=== PATIENT | male | born 1980 | race Caucasian/White ===

== ENCOUNTER 2016-07-25 01:40 | Emergency (ER) | payer OTHER ==
[~2016-07-25] VITALS: Ht 190.5 cm; Wt 148.4 kg
[~2016-07-25 01:40] MED LIST: ALPR1TAB3 PO; BUPR300T PO; ESCI20TA PO; MULT1TAB84 PO
[2016-07-25 01:49] VITALS: BP 137/94; PULSE 73; RESP 18; TEMP 97.9; O2SAT 96
--- NOTE | 2016-07-25 02:50 | PD ---
HPI Chief Complaint: Head Injury Time Seen by Provider: 02:00 Travel History International Travel<30 days: No Contact w/Intl Traveler<30days: No Traveled to known affect area: No History of Present Illness HPI 36 year-old male presents to the emergency department by private transportation for evaluation of head injury and neck pain that occurred approximately 8:45 PM while playing football in [facility]. Patient reportedly did have loss of consciousness with the event. 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 Patient reports that for this particular came his equipment was ill fitting and the helmet did not fit properly so he removed the padding in order to play and during the game he was injured clotting with another player. Patient does not recall all events but reportedly was carried off of the football field. Football employment trainer/brush sander/sports medicine provider did not assess the patient states his is a nurse and she assessed him and decided that he needed to come to the emergency room. Patient insisted on returning to the area locally noted to be assessed his pupil with him and he did not want him to be inconvenienced by having him assessed in the emergency room in [facility]. Patient denies any upper extremity or lower extremity numbness tingling or weakness. No ataxia of gait. PFSH Past Medical History Narrative Medical Anxiety depression sinus surgery no tobacco use nursing notes reviewed Anxiety: Yes Depression: Yes Diminished Hearing: No Tetanus Vaccination: Unknown Influenza Vaccination: No Past Surgical History Other Surgery: Yes (MULTIPLE SINUS SURGERY) Social History Alcohol Use: No Tobacco Use: No Substance Use: No Allergies-Medications (Allergen,Severity, Reaction): Coded Allergies: No Known Allergies (Unverified , 07/25/16) Reported Meds & Prescriptions Reported Meds & Active Scripts Active Reported Multivitamin Adults (Multiple Vitamins W/ Minerals) 1 Tab 1 Tab PO DAILY Bupropion HCl ER 24 HR (Bupropion HCl) 300 Mg Tab 300 Mg PO DAILY Escitalopram (Escitalopram Oxalate) 20 Mg Tab 20 Mg PO DAILY Alprazolam 1 Mg Tab 1 Mg PO TID PRN Review of Systems Except as stated in HPI: all other systems reviewed are Neg Physical Exam Narrative GENERAL: Well-developed well-nourished male in no acute distress no respiratory distress GCS 15 SKIN: Warm and dry. HEAD: Atraumatic. Normocephalic. No scalp soft tissue swelling hematoma ecchymosis or abrasion no laceration or bony step-off. EYES: Pupils equal and round. No scleral icterus. No injection or drainage. ENT: No nasal bleeding or discharge. Mucous membranes pink and moist. NECK: Trachea midline. No JVD. Cervical collar applied CARDIOVASCULAR: Regular rate and rhythm. RESPIRATORY: No accessory muscle use. Clear to auscultation. Breath sounds equal bilaterally. GASTROINTESTINAL: Abdomen soft, non-tender, nondistended. Hepatic and splenic margins not palpable. MUSCULOSKELETAL: Extremities without clubbing, cyanosis, or edema. No obvious deformities. NEUROLOGICAL: Awake and alert. No obvious cranial nerve deficits. Motor grossly within normal limits. Five out of 5 muscle strength in the arms and legs. Normal speech. PSYCHIATRIC: Appropriate mood and affect; insight and judgment normal. Data Data Last Documented VS Vital Signs Date Time Temp Pulse Resp B/P Pulse Ox O2 Delivery O2 Flow Rate FiO2 07/25/16 02:05 20 98 07/25/16 01:49 97.9 73 137/[address] Brain W/O Iv Contrast(Rout) (07/25/16 ) Ct Cerv Spine W/O Contrast (07/25/16 ) MDM Medical Decision Making Medical Screen Exam Complete: Yes Emergency Medical Condition: Yes Medical Record Reviewed: Yes Interpretation(s) CTbrain w/o: CONCLUSION: Normal examination. Stefan Marshall MD on July 25, 2016 at 2:51 Board Certified Radiologist. This report was verified electronically. CT cerv spine w/o: CONCLUSION: 1. Mild degenerative changes with no fracture or listhesis. Stefan Marshall MD on July 25, 2016 at 2:58 Board Certified Radiologist. This report was verified electronically. Differential Diagnosis Minor CHI, concussion, ICH, cervical spine sprain strain fracture cord injury Narrative Course Patient was calm place imaging studies ordered Diagnosis Primary Impression: Concussion Qualified Code: S06.0X1A - Concussion, with loss of consciousness of 30 minutes or less, initial encounter Additional Impressions: Minor closed head injury Cervical strain, acute Qualified Code: S16.1XXA - Cervical strain, acute, initial encounter Referrals: Primary Care Physician 1 day Patient Instructions: General Instructions Additional Instructions: Follow head injury precautions 24 hours No contact sports until evaluated by primary care provider or sports medicine provider No work times one day May use as tolerated acetaminophen and/or ibuprofen per package directions for minor pain or pain associated with inflammation respectively Use ice intermittently for first 12-24 hours to areas of soft tissue swelling and discomfort then moist heat for comfort purposes Return to the emergency department for any concerns or change in condition May use Phenergan as prescribed as needed as tolerated for nausea and/or vomiting May use muscle relaxant as prescribed as needed for muscle spasm of the neck use with caution as may impair judgment delay reaction time or cause drowsiness Med/Other Pt SpecificInfo: Prescription(s) given Scripts Methocarbamol (Robaxin)750 Mg [id number] Mg PO Q6HR #10 TAB Ref 0 Prov:Daniela Kinsey MD 07/25/16 Promethazine (Phenergan)25 Mg Tab25 Mg PO Q6H PRN (Nausea/Vomiting) #10 TAB Ref 0 Prov:Daniela Kinsey MD 07/25/16 Daniela Kinsey MD Jul 25, 2016 02:50
--- NOTE | 2016-07-25 02:53 | RADHPO ---
EXAM DATE/TIME: 07/25/2016 02:25 [facility] COMPARISON: No previous studies available for comparison. INDICATIONS : Left superior head trauma. RADIATION DOSE: 61.4 CTDIvol (mGy) MEDICAL HISTORY : None SURGICAL HISTORY : None. ENCOUNTER: Initial ACUITY: 1 day PAIN SCALE: 8/10 LOCATION: cranial TECHNIQUE: Multiple contiguous axial images were obtained of the head. Using automated exposure control and adj ustment of the mA and/or kV according to patient size, radiation dose was kept as low as reasonably a chievable to obtain optimal diagnostic quality images. FINDINGS: CEREBRUM: The ventricles are normal for age. No evidence of midline shift, mass lesion, hemorrhage or acute in farction. No extra-axial fluid collections are seen. POSTERIOR FOSSA: The cerebellum and brainstem are intact. The 4th ventricle is midline. The cerebellopontine angle i s unremarkable. EXTRACRANIAL: The visualized portion of the orbits is intact. SKULL: The calvaria is intact. No evidence of skull fracture. CONCLUSION: Normal examination. Stefan Marshall MD on July 25, 2016 at 2:51 Board Certified Radiologist. This report was verified electronically.
--- NOTE | 2016-07-25 03:01 | RADHPO ---
EXAM DATE/TIME: 07/25/2016 02:25 [facility] COMPARISON: CT BRAIN W/O CONTRAST, July 25, 2016, 2:25. INDICATIONS : Posterior neck trauma. RADIATION DOSE: 26.76 CTDIvol (mGy) MEDICAL HISTORY : None SURGICAL HISTORY : None. ENCOUNTER: Initial ACUITY: 1 day PAIN SCALE: 8/10 LOCATION: neck TECHNIQUE: Volumetric scanning of the cervical spine was performed. Multiplanar reconstructions in the sagittal, coronal and oblique axial planes were performed. Using automated exposure control and adjustment o f the mA and/or kV according to patient size, radiation dose was kept as low as reasonably achievable to obtain optimal diagnostic quality images. FINDINGS: VERTEBRAE: Normal vertebral body height. Mild anterior osteophyte formation at C4 and C5. ALIGNMENT: No evidence of subluxation. C2-C3: The bony spinal canal is normal in size. No evidence of disc bulge or herniation. The neural forami na are bilaterally patent. C3-C4: Tiny central disc protrusion. C4-C5: Tiny central disc protrusion. C5-C6: Tiny central disc protrusion. C6-C7: The bony spinal canal is normal in size. No evidence of disc bulge or herniation. The neural forami na are bilaterally patent. C7-T1: The bony spinal canal is normal in size. No evidence of disc bulge or herniation. The neural forami na are bilaterally patent. CONCLUSION: 1. Mild degenerative changes with no fracture or listhesis. Stefan Marshall MD on July 25, 2016 at 2:58 Board Certified Radiologist. This report was verified electronically.
[2016-07-25] MEDS ORDERED: PROM25TA5 PO (03:12)
[2016-07-25] MEDS ORDERED: ROBA750T PO (03:12)
[2016-07-25 03:46] VITALS: BP 130/71
[2016-08-16] MEDS ORDERED: WELLTAB39 PO (13:04)
[2016-08-16] MEDS ORDERED: MOBI15TA PO (13:04)
== END 2016-07-25 03:48 | disposition home or self-care (01) ==
LOC: PHED 01:40 → PHEFT 03:48
DX: S06.0X1A Concussion with loss of consciousness of 30 minutes or less, initial encounter (principal); S16.1XXA Strain of muscle, fascia and tendon at neck level, initial encounter; W51.XXXA Accidental striking against or bumped into by another person, initial encounter; Y93.61 Activity, american tackle football
CPT/HCPCS: 70450; 72125

== ENCOUNTER 2016-08-21 13:48 | Emergency (ER) | payer OTHER ==
[~2016-08-21] VITALS: Ht 190.5 cm; Wt 157.0 kg
[~2016-08-21 13:48] MED LIST changes: -BUPR300T PO; -ESCI20TA PO; +MOBI15TA PO; -MULT1TAB84 PO; +WELLTAB39 PO
[2016-08-21 13:54] VITALS: BP 166/98; PULSE 82; RESP 16; TEMP 97.9; O2SAT 97
[2016-08-21] MEDS ORDERED: IBUP800T23 PO ×2 (14:04→15:19)
[2016-08-21] MEDS ORDERED: MOBI15TA PO (14:04)
--- NOTE | 2016-08-21 14:05 | PD ---
HPI Chief Complaint: Injury Time Seen by Provider: 14:05 Travel History International Travel<30 days: No Contact w/Intl Traveler<30days: No Traveled to known affect area: No History of Present Illness HPI 28-year-old male stating right forearm pain, swelling, as well as right hand pain and swelling, status post football injury approximately one week ago. Patient was seen on 08/18/16, at the [facility] urgent care and stated that he was told there was no fracture. Patient states had pain and swelling in inability to make a fist of the right hand. Patient has a couple of abrasions without significant signs of infection. Nice fever, chills, or other symptoms. He has no known drug allergies. PFSH Past Medical History Anxiety: Yes Depression: Yes Diminished Hearing: No Influenza Vaccination: No ?: Not Past Surgical History Other Surgery: Yes (MULTIPLE SINUS SURGERY) Social History Alcohol Use: No Tobacco Use: No Substance Use: No Allergies-Medications (Allergen,Severity, Reaction): Coded Allergies: No Known Allergies (Unverified , 08/21/16) Reported Meds & Prescriptions Reported Meds & Active Scripts Active Reported Mobic (Meloxicam) 15 Mg Tab 15 Mg PO DAILY Ibuprofen 800 Mg Tab 800 Mg PO Q6HR PRN Wellbutrin Xl 24 HR (Bupropion HCl) 300 Mg Tab 300 Mg PO DAILY Review of Systems Except as stated in HPI: all other systems reviewed are Neg General / Constitutional: No: Fever Eyes: No: Visual changes HENT: No: Headaches Cardiovascular: No: Chest Pain or Discomfort Respiratory: No: Shortness of Breath Gastrointestinal: No: Abdominal Pain Genitourinary: No: Dysuria Musculoskeletal: No: Pain Skin: No Rash Neurologic: No: Weakness Psychiatric: No: Depression Endocrine: No: Polydipsia Hematologic/Lymphatic: No: Easy Bruising Physical Exam Narrative GENERAL: Patient appears in moderate distress. SKIN: Warm and dry. Normal color. Normal turgor. Patient has some superficial abrasions to the right medial lateral forearm as well as dorsal lateral hand without signs of localized cellulitis. The patient has generalized edema to the right hand, wrist, and forearm. Capillary refill is normal. HEAD: Atraumatic. Normocephalic. EYES: Pupils equal and round. No scleral icterus. No injection or drainage. ENT: No nasal bleeding or discharge. Mucous membranes pink and moist. NECK: Trachea midline. No JVD. CARDIOVASCULAR: Regular rate and rhythm. RESPIRATORY: No accessory muscle use. Clear to auscultation. Breath sounds equal bilaterally. GASTROINTESTINAL: Abdomen soft, non-tender, nondistended. Hepatic and splenic margins not palpable. MUSCULOSKELETAL: Extremities without clubbing, cyanosis, or edema. No obvious deformities. Patient is tenderness along the right forearm and dorsal hand specifically over the fourth and fifth metatarsals. Pronation and supination is intact although somewhat limited by pain. Elbow extension and flexion is normal. The patient has decreased securities attorney strength in the right hand secondary to swelling and discomfort. NEUROLOGICAL: Awake and alert. No obvious cranial nerve deficits. Motor grossly within normal limits. Five out of 5 muscle strength in the arms and legs. Normal speech. PSYCHIATRIC: Appropriate mood and affect; insight and judgment normal. Data Data Last Documented VS Vital Signs Date Time Temp Pulse Resp B/P Pulse Ox O2 Delivery O2 Flow Rate FiO2 08/21/16 13:54 97.9 82 16 166/98 97 Orders Forearm (2vws) (08/21/16 14:18) Hand, Complete ([id number]) (08/21/16 14:18) [facility] Medical Decision Making Medical Screen Exam Complete: Yes Emergency Medical Condition: Yes Differential Diagnosis Contusion. Tendinitis. Fracture. Compartment syndrome. Narrative Course Patient is medically stable at time of exam. X-rays of the right forearm and hand are ordered. X-rays are negative for fracture per radiologist. Patient is placed in an ulnar gutter splint and sling for comfort. Patient is to take ibuprofen 800 mg 3 times daily with food #60. Patient is to use heat followed by ice and gentle stretching over the next week. Recommend follow-up with orthopedist if symptoms do not improve in the next week. Patient to return to emergency Department with worsening symptoms as needed. Diagnosis Primary Impression: Right forearm injury Qualified Code: S59.911A - Right forearm injury, initial encounter Additional Impressions: Contusion of hand, right Tenosynovitis of right forearm Referrals: Dean Zaldivar MD as needed Patient Instructions: Contusion in Adults (ED), General Instructions, Upper Extremity Tenosynovitis (DC) Additional Instructions: X-rays are negative for fracture per radiologist. Patient is placed in an ulnar gutter splint and sling for comfort. Patient is to take ibuprofen 800 mg 3 times daily with food #60. Patient is to use heat followed by ice and gentle stretching over the next week. Recommend follow-up with orthopedist if symptoms do not improve in the next week. Patient to return to emergency Department with worsening symptoms as needed. Med/Other Pt SpecificInfo: Prescription(s) given Disposition: 01 DISCHARGE HOME Condition: Stable Jamal Martinez Aug 21, 2016 14:05
--- NOTE | 2016-08-21 15:14 | RADHPO ---
EXAM DATE/TIME: 08/21/2016 14:25 [facility] COMPARISON: No previous studies available for comparison. INDICATIONS : Right hand pain from trauma. MEDICAL HISTORY : None. SURGICAL HISTORY : None. ENCOUNTER: Initial ACUITY: 1 week PAIN SCORE: 6/10 LOCATION: 2nd-4th metacarpel. FINDINGS: Three view examination of the right hand demonstrates no soft tissue swelling, dislocation, or fractu re. The carpal bones appear intact. The interphalangeal and metacarpophalangeal joints are intact. Bony mineralization is normal. CONCLUSION: No acute fracture. Krystian Maher MD on August 21, 2016 at 15:12 Board Certified Radiologist. This report was verified electronically.
--- NOTE | 2016-08-21 15:15 | RADHPO ---
EXAM DATE/TIME: 08/21/2016 14:27 [facility] COMPARISON: No previous studies available for comparison. INDICATIONS : Right forearm pain from trauma. MEDICAL HISTORY : SURGICAL HISTORY : None. ENCOUNTER: Initial ACUITY: 1 week PAIN SCORE: 6/10 LOCATION: posterior distal part of arm. FINDINGS: Two view examination of the right forearm demonstrates no evidence of fracture or dislocation. Bony mineralization is normal. The soft tissue structures are prominent. CONCLUSION: 1. Soft tissue swelling without fracture. Krystian Maher MD on August 21, 2016 at 15:13 Board Certified Radiologist. This report was verified electronically.
[2016-08-21] MEDS ORDERED: BACT800T5 PO (23:02)
[2016-08-21] MEDS ORDERED: PERC10TA27 PO (23:02)
[2016-08-21] MEDS ORDERED: CEPH-460 PO (23:02)
== END 2016-08-21 15:52 | disposition home or self-care (01) ==
LOC: PHEFT 13:48
DX: S60.221A Contusion of right hand, initial encounter (principal); S59.911A Unspecified injury of right forearm, initial encounter; M65.831 Other synovitis and tenosynovitis, right forearm; X58.XXXA Exposure to other specified factors, initial encounter; Y93.61 Activity, american tackle football
CPT/HCPCS: 29125; 73090; 73130

== ENCOUNTER 2016-08-21 20:33 | Emergency (ER) | payer OTHER ==
[~2016-08-21] VITALS: Ht 190.5 cm; Wt 157.6 kg
[~2016-08-21 20:33] MED LIST changes: +IBUP800T23 PO
[2016-08-21 20:47] VITALS: BP 152/90; PULSE 82; RESP 20; TEMP 98.6; O2SAT 97
[2016-08-21] MEDS ORDERED: SODIUM CHLORIDE 0.9% FLUSH 5 ML FLUSH IVF PRN (21:15)
[2016-08-21] MEDS ORDERED: MORPHINE SULFATE 4 MG/ML INJ IV PUSH ONE ×2 (21:15→23:00)
[2016-08-21] MEDS ORDERED: LIDOCAINE 1%/EPINEPHrine 1:100,000 SOLN 20 ML VIAL INFIL ONE (21:15)
[2016-08-21] MEDS ORDERED: SODIUM CHLOR 0.9% 1000 ML INJ 1,000 ML IV ONE (21:15)
[2016-08-21 21:25] VITALS: O2SAT 95
[2016-08-21 21:31] LABS: AUTOMATED NEUTROPHIL # 8.8 TH/MM3 (1.8-7.7); BASOPHIL # 0.1 TH/MM3 (0-0.2); BASOPHIL % 0.6 % (0.0-2.0); EOSINOPHIL # 0.2 TH/MM3 (0-0.4); EOSINOPHIL % 1.3 % (0.0-4.0); HEMATOCRIT 46.4 % (39.0-51.0); HEMO FLAGS DIFF FINAL; LYMPH % 15.3 % (9.0-44.0); LYMPHOCYTE # 1.9 TH/MM3 (1.0-4.8); MEAN CORPUSCULAR HGB CONC 33.7 % (32.0-36.0); MONO % 9.8 % (0.0-8.0); PLATELET COUNT 355 TH/MM3 (150-450); RED CELL DISTRIBUTION WIDTH 13.7 % (11.6-17.2); WHITE BLOOD COUNT 12.1 TH/MM3 (4.0-11.0)
[2016-08-21 21:38] LABS: POTASSIUM 3.8 MEQ/L (3.5-5.1)
[2016-08-21 21:41] LABS: BICARBONATE 26.9 MEQ/L (21.0-32.0)
[2016-08-21 21:44] LABS: APTT (PATIENT) 31.9 SEC (24.3-30.1)
[2016-08-21 22:15] VITALS: BP 151/75; PULSE 77; RESP 18; O2SAT 96
--- NOTE | 2016-08-21 22:15 | PD ---
HPI Chief Complaint: Wound/Suture/Staple Re-Check Time Seen by Provider: 20:56 Travel History International Travel<30 days: No Contact w/Intl Traveler<30days: No Traveled to known affect area: No History of Present Illness HPI 36-year-old male here for evaluation of right forearm pain and swelling. The patient plays tackle football and injured his right forearm 1 week ago while playing football. Patient reports with sounds like a crush injury having his arm trapped between his body and another player's helmet. He also injured the forearm a second time during the game. He was seen at an urgent care facility the day after and was told that there are no fractures in his forearm. Patient presented to the emergency department earlier today and had a right hand and right forearm x-ray that were negative for acute fracture. The patient reports having increasing pain and swelling in the right forearm. Pain is moderate, constant, worse with movement and palpation. He is able to flex and extend his hand, however this causes pain. He was evaluated by his team doctor today who was concerned for possible compartment syndrome and sent back to the emergency department for reevaluation. PFSH Past Medical History Anxiety: Yes Depression: Yes Diminished Hearing: No Tetanus Vaccination: Unknown Influenza Vaccination: No Past Surgical History Other Surgery: Yes (MULTIPLE SINUS SURGERY) Social History Alcohol Use: No Tobacco Use: No Substance Use: No Allergies-Medications (Allergen,Severity, Reaction): Coded Allergies: No Known Allergies (Unverified , 08/21/16) Reported Meds & Prescriptions Reported Meds & Active Scripts Active Percocet (Oxycodone-Acetaminophen) 10-325 mg Tab 1 Tab PO Q6H PRN Keflex (Cephalexin) 500 Mg Cap 500 Mg PO Q6H 7 Days Bactrim DS (Sulfamethoxazole-Trimethoprim) 800-160 Mg Tab 1 Tab PO BID Ibuprofen 800 Mg Tab 800 Mg PO Q8H PRN Reported Mobic (Meloxicam) 15 Mg Tab 15 Mg PO DAILY Ibuprofen 800 Mg Tab 800 Mg PO Q6HR PRN Wellbutrin Xl 24 HR (Bupropion HCl) 300 Mg Tab 300 Mg PO DAILY Review of Systems Except as stated in HPI: all other systems reviewed are Neg Physical Exam Narrative GENERAL: Pleasant, well-developed, well-nourished, comfortable, no acute distress. SKIN: Warm and dry. Right posterior/medial forearm with healing abrasions, no surrounding warmth or erythema. No lacerations. HEAD: Atraumatic. Normocephalic. EYES: Pupils equal and round. No scleral icterus. No injection or drainage. ENT: No nasal bleeding or discharge. Mucous membranes pink and moist. CARDIOVASCULAR: Regular rate and rhythm. Bilateral distal radial pulses are brisk and equal. Normal capillary refill in right hand. MUSCULOSKELETAL: Moderate edema to right forearm and right hand with diffuse tenderness. Normal range of motion in right hand, elbow, and shoulder, however movement causes pain. Right hand and right forearm are warm, pink, and dry. All compartments in right forearm and arm are supple. There is a healing abrasion on right posterior/medial right forearm without surrounding warmth or erythema. NEUROLOGICAL: Awake and alert. No obvious cranial nerve deficits. Motor grossly within normal limits. Normal speech. PSYCHIATRIC: Appropriate mood and affect; insight and judgment normal. Data Data Last Documented VS Vital Signs Date Time Temp Pulse Resp B/P Pulse Ox O2 Delivery O2 Flow Rate FiO2 08/22/16 00:29 82 18 162/97 95 08/21/16 23:30 Room Air 08/21/16 20:47 98.6 Orders Basic Metabolic Panel (Bmp) (08/21/16 21:11) Complete Blood Count With Diff (08/21/16 21:11) Prothrombin Time / Inr (Pt) (08/21/16 21:11) Act Partial Throm Time (Ptt) (08/21/16 21:11) Iv Access Insert/Monitor (08/21/16 21:11) Ecg Monitoring (08/21/16 21:11) Oximetry (08/21/16 21:11) Morphine Inj (Morphine Inj) (08/21/16 21:15) Sodium Chloride 0.9% Flush (Ns Flush) (08/21/16 21:15) Creatine Kinase (Cpk) (08/21/16 21:11) Sodium Chlor 0.9% 1000 Ml Inj (Ns 1000 M (08/21/16 21:15) Lidocai-Epi 1%-1:100,000 Inj (Xylocaine- (08/21/16 21:15) Ct Forearm W Iv Contrast (08/21/16 ) Iohexol 350 Inj (Omnipaque 350 Inj) (08/21/16 22:28) ^ Splint (08/21/16 22:56) Cephalexin (Keflex) (08/21/16 23:00) Sulfamet-Trimeth Ds 800-160 Mg (Bactrim (08/21/16 23:00) Morphine Inj (Morphine Inj) (08/21/16 23:00) Support Splint (08/22/16 00:09) Labs Laboratory Tests Test 08/21/16 21:10 White Blood Count 12.1 TH/MM3 Red Blood Count 5.40 MIL/MM3 Hemoglobin 15.6 GM/DL Hematocrit 46.4 % Mean Corpuscular Volume 86.0 FL Mean Corpuscular Hemoglobin 29.0 PG Mean Corpuscular Hemoglobin 33.7 % Concent Red Cell Distribution Width 13.7 % Platelet Count 355 TH/MM3 Mean Platelet Volume 8.7 FL Neutrophils (%) (Auto) 73.0 % Lymphocytes (%) (Auto) 15.3 % Monocytes (%) (Auto) 9.8 % Eosinophils (%) (Auto) 1.3 % Basophils (%) (Auto) 0.6 % Neutrophils # (Auto) 8.8 TH/MM3 Lymphocytes # (Auto) 1.9 TH/MM3 Monocytes # (Auto) 1.2 TH/MM3 Eosinophils # (Auto) 0.2 TH/MM3 Basophils # (Auto) 0.1 TH/MM3 CBC Comment DIFF FINAL Differential Comment Prothrombin Time 11.0 SEC Prothromb Time International 1.0 RATIO Ratio Activated Partial 31.9 SEC Thromboplast Time Sodium Level 139 MEQ/L Potassium Level 3.8 MEQ/L Chloride Level 103 MEQ/L Carbon Dioxide Level 26.9 MEQ/L Anion Gap 9 MEQ/L Blood Urea Nitrogen 10 MG/DL Creatinine 0.91 MG/DL Estimat Glomerular Filtration 93 ML/MIN Rate Random Glucose 88 MG/DL Calcium Level 8.2 MG/DL Total Creatine Kinase 308 U/L [facility] Medical Decision Making Medical Screen Exam Complete: Yes Emergency Medical Condition: Yes Medical Record Reviewed: Yes Differential Diagnosis Compartment syndrome, crush injury, contusion, rhabdomyolysis Narrative Course All 4 compartments in right forearm will check by me and are within normal limits. See procedure note. Vital signs show heart rate 82, blood pressure 152/90, pulse ox 97% on room air , oral temp of 98.6F. CBC is unremarkable. BMP is unremarkable. Total CK is 308. CT right forearm: CONCLUSION: 1. Cellulitic changes. No abscess. Patient was made aware of all findings. He is resting comfortably. All 4 compartment pressure measurements in the right forearm were within normal limits. Patient has a healing abrasion on his right forearm which could have introduced some bacteria. He has some mild erythema to the right forearm. Given CT findings, I will start him on antibiotics to cover cellulitis. His forearm was placed in a volar splint. He is stable for discharge home with outpatient follow-up with an orthopedist this week. He was informed on when to return to the emergency department. He verbalizes understanding and agreement with plan. Procedures Procedure Narrative Right forearm compartment pressure measurements: Informed consent obtained. Volar, deep volar, dorsal, and mobile wad compartments were checked using a Indiahoma needle. Linear ultrasound probe was used prior to Anatoliy needle insertion to jaun skin in areas where there were no vessels. Skin prepped with ChloraPrep. 0.5 cc of 2% lidocaine with epinephrine was used at each location for local anesthesia. Compartment pressure measurements listed below. Procedure was tolerated well. No complications. Right forearm compartment pressure measurements: Volar compartment: 22 mmHg Deep volar compartment: 19 mmHg Dorsal compartment: 21 mmHg Mobile Wad compartment: 21 mmHg Diagnosis Primary Impression: Right forearm injury Qualified Code: S59.911D - Right forearm injury, subsequent encounter Additional Impression: Right forearm cellulitis Referrals: Dean Zaldivar MD Additional Instructions: Follow-up with orthopedic surgeon Dr. Zaldivar or an orthopedist of your choice this week. Return to the emergency department for worsening symptoms or any other concerns as discussed. Scripts Oxycodone-Acetaminophen (Percocet)10-325 mg Tab1 Tab PO Q6H PRN (PAIN) #15 TAB Ref 0 Prov:Tee Walton MD 08/21/16 Cephalexin (Keflex)500 Mg [id number] Mg PO Q6H 7 Days Ref 0 Prov:Tee Walton MD 08/21/16 Sulfamethoxazole-Trimethoprim (Bactrim DS)800-160 Mg Tab1 Tab PO BID #14 TAB Ref 0 Prov:Tee Walton MD 08/21/16 Disposition: 01 DISCHARGE HOME Condition: Stable Tee Walton MD Aug 21, 2016 22:15
[2016-08-21] MEDS ORDERED: IOHEXOL 350 MG/ML 10 ML VIAL (for RAD DIAG) IV ONE (22:28)
--- NOTE | 2016-08-21 22:44 | RADHPO ---
EXAM DATE/TIME: 08/21/2016 21:56 [place] COMPARISON: No previous studies available for comparison. INDICATIONS : Pain and swelling in the right proximal forearm. IV CONTRAST: 97 cc Omnipaque 350 (iohexol) IV RADIATION DOSE: 13.31 CTDIvol (mGy) MEDICAL HISTORY : None SURGICAL HISTORY : None. ENCOUNTER: Initial ACUITY: 4 - 6 days PAIN SCALE: 7/10 LOCATION: Right forearm. TECHNIQUE: Volumetric scanning of the forearm was performed. Using automated exposure control and adjustment of the mA and/or kV according to patient size, radiation dose was kept as low as reasonably achievable to obtain optimal diagnostic quality images. FINDINGS: BONES: No evidence of fracture. Alignment is within normal limits. JOINTS: No evidence of joint narrowing or effusion. SOFT TISSUES: Muscles, tendons, and neurovascular structures are grossly unremarkable. No abscess. Soft tissue swel ling of the elbow posteriorly extending into the forearm predominantly within the posterior soft tiss ues. CONCLUSION: 1. Cellulitic changes. No abscess. Krystian Maher MD on August 21, 2016 at 22:41 Board Certified Radiologist. This report was verified electronically.
[2016-08-21] MEDS ORDERED: CEPHALEXIN MONOHYDRATE 500 MG CAP PO ONE (23:00)
[2016-08-21] MEDS ORDERED: SULFAMETHOXAZOLE-TRIMETHOPRIM DS 800-160 MG TAB PO ONE (23:00)
[2016-08-21] MEDS ORDERED: PERC10TA27 PO (23:02)
[2016-08-21] MEDS ORDERED: CEPH-460 PO (23:02)
[2016-08-21] MEDS ORDERED: BACT800T5 PO (23:02)
[2016-08-21 23:30] VITALS: BP_SYST 162; BP_SYST 77; BP_DIAS 77; PULSE 75; RESP 18; O2SAT 97
[2016-08-22 00:06] VITALS: RESP 18
[2016-08-22 00:29] VITALS: BP 162/97
== END 2016-08-22 00:29 | disposition home or self-care (01) ==
LOC: PHED 20:33
DX: S59.911A Unspecified injury of right forearm, initial encounter (principal); L03.113 Cellulitis of right upper limb; X58.XXXA Exposure to other specified factors, initial encounter; Y93.61 Activity, american tackle football
CPT/HCPCS: 20950; 29125; 73201; 80048; 82550; 85025; 85610; 85730; 96361; 96374; 96376; 99283; J2270; J7030; Q9967

== ENCOUNTER → 2017-08-10 | Outpatient (CLI) | payer OTHER ==
[~2017-08-10] MED LIST changes: -ALPR1TAB3 PO; +BACT800T5 PO; +CEPH-460 PO; +IBUP1TAB7 PO; -IBUP800T23 PO; +PERC10TA27 PO
[2017-08-10 13:46] LABS: ALT (GPT) 47 U/L (12-78); AST (GOT) 26 U/L (15-37); AUTOMATED NEUTROPHIL # 4.2 TH/MM3 (1.8-7.7); BASOPHIL # 0.1 TH/MM3 (0-0.2); BASOPHIL % 1.2 % (0.0-2.0); BICARBONATE 28.1 MEQ/L (21.0-32.0); BLOOD UREA NITROGEN 10 MG/DL (7-18); CALCIUM 8.6 MG/DL (8.5-10.1); CHLORIDE 103 MEQ/L (98-107); CHOLESTEROL 163 MG/DL (120-200); EOSINOPHIL # 0.2 TH/MM3 (0-0.4); GLOMERULAR FILTRATION RATE 94 ML/MIN (>89); GLUCOSE,FASTING 99 MG/DL (74-99); HEMATOCRIT 47.3 % (39.0-51.0); HEMOGLOBIN 16.3 GM/DL (13.0-17.0); LYMPH % 25.5 % (9.0-44.0); LYMPHOCYTE # 1.8 TH/MM3 (1.0-4.8); MEAN CELL VOLUME 86.3 FL (80.0-100.0); MEAN CORPUSCULAR HEMOGLOBIN 29.8 PG (27.0-34.0); MEAN CORPUSCULAR HGB CONC 34.5 % (32.0-36.0); MEAN PLATELET VOLUME 8.5 FL (7.0-11.0); MONO % 10.3 % (0.0-8.0); MONOCYTE # 0.7 TH/MM3 (0-0.9); PLATELET COUNT 296 TH/MM3 (150-450); RED BLOOD COUNT 5.47 MIL/MM3 (4.50-5.90); RED CELL DISTRIBUTION WIDTH 12.9 % (11.6-17.2); SODIUM (NA) 139 MEQ/L (136-145)
[2017-08-10 13:56] LABS: ALKALINE PHOSPHATASE 77 U/L (45-117); CHOLESTEROL/ HDL RATIO 4.36 RATIO; HDL CHOLESTEROL 37.3 MG/DL (40.0-60.0); LDL CHOLESTEROL 107 MG/DL (0-99); THYROXINE (T4) 7.8 MCG/DL (4.5-12.1); TOTAL BILIRUBIN ADULT 0.4 MG/DL (0.2-1.0); TOTAL PROTEIN 7.9 GM/DL (6.4-8.2); TRIGLYCERIDES 94 MG/DL (42-150)
[2017-08-10 15:38] LABS: TOXIC GRANULATION 1+ (NORMAL)
== END ==
LOC: PLAB 08:36
PROVIDERS: ATTEND Student in an Organized Health Care Education/Training Program
DX: I10 Essential (primary) hypertension (principal); F41.1 Generalized anxiety disorder; R94.5 Abnormal results of liver function studies
CPT/HCPCS: 36415; 80053; 80061; 84436; 84443; 85025

== ENCOUNTER → 2017-11-11 | Outpatient (CLI) | DX: E29.1 Testicular hypofunction (principal) ==

== ENCOUNTER → 2017-11-30 | Outpatient (CLI) | payer OTHER | LOC: PLAB 08:21 | PROVIDERS: ATTEND Internal Medicine Endocrinology, Diabetes & Metabolism | DX: E24.9 Cushing's syndrome, unspecified (principal) | CPT/HCPCS: 36415; 82533 ==

== ENCOUNTER → 2017-12-05 | Outpatient (CLI) | payer OTHER ==
[2017-12-05 13:53] LABS: ALBUMIN 3.9 GM/DL (3.4-5.0); ALT (GPT) 51 U/L (12-78); AST (GOT) 30 U/L (15-37); BICARBONATE 27.8 MEQ/L (21.0-32.0); BLOOD UREA NITROGEN 10 MG/DL (7-18); CALCIUM 8.7 MG/DL (8.5-10.1); CHLORIDE 104 MEQ/L (98-107); CREATININE 0.97 MG/DL (0.60-1.30); GLOMERULAR FILTRATION RATE 86 ML/MIN (>89); GLUCOSE,RANDOM 103 MG/DL (74-106); SODIUM (NA) 141 MEQ/L (136-145)
[2017-12-05 13:56] LABS: ALKALINE PHOSPHATASE 88 U/L (45-117); TOTAL BILIRUBIN ADULT 0.4 MG/DL (0.2-1.0); TOTAL PROTEIN 7.5 GM/DL (6.4-8.2)
[2017-12-07 12:45] LABS: METANEPHRINES <0.20 nmol/L (<0.50); NORMETANEPHRINE 0.26 nmol/L (<0.90)
== END ==
LOC: PLAB 09:02
PROVIDERS: ATTEND Internal Medicine Endocrinology, Diabetes & Metabolism
DX: E29.1 Testicular hypofunction (principal)
CPT/HCPCS: 36415; 80053; 83835; 84305

== ENCOUNTER 2018-03-14 19:57 | Observation (INO) ==
[2018-03-14 20:49] LABS: Baso # (Auto) 0.4 th/mm3 (0.0-0.2); Baso % (Auto) 2.4 % (0.0-2.0); Eos % (Auto) 0.2 % (0.0-4.0); Hematocrit 55.7 % (39.0-51.0); Hemoglobin 18.5 gm/dL (13.0-17.0); Lymph # (Auto) 1.8 th/mm3 (1.0-4.8); Lymph % (Auto) 11.8 % (9.0-44.0); Mean Corpuscular HGB Conc 33.3 % (32.0-36.0); Mean Platelet Volume 8.8 fL (7.0-11.0); Mono % (Auto) 6.7 % (0.0-8.0); Neut # (Auto) 12.4 th/mm3 (1.8-7.7); Neut % (Auto) 78.9 % (16.0-70.0); Platelet Count 397 th/mm3 (150-450); Red Cell Distribution Width 12.8 % (11.6-17.2); White Blood Count 15.6 th/mm3 (4.0-11.0)
[2018-03-14] MEDS: Sod Chloride 0.9% Inj 1,000 ML IV.SIG SCH ×2 (20:56→22:05)
[2018-03-14 21:04] LABS: Chloride 93 meq/L (98-107); Sodium 131 meq/L (136-145)
[2018-03-14 21:08] LABS: Albumin 5.4 g/dL (3.4-5.0); Anion Gap 13 meq/L (5-15); Blood Urea Nitrogen 28 mg/dL (7-18); Glucose,Random 102 mg/dL (74-106)
[2018-03-14 21:11] LABS: Alanine Aminotransferase 52 U/L (12-78); Aspartate Aminotransferase 41 U/L (15-37); Glomerular Filtration Rate 19 mL/min (>89)
[2018-03-14 21:13] LABS: Total Protein 9.9 g/dL (6.4-8.2)
[2018-03-14 21:14] LABS: Alkaline Phosphatase 90 U/L (45-117); Creatine Kinase 912 U/L (39-308)
[2018-03-14 21:29] LABS: CKMB Percent 0.8 % (0.0-4.0)
[2018-03-14] MEDS ORDERED: Sodium Bicarbonate 8.4% Inj 50 MEQ in Dextrose 5% in Water Inj 950 ML IV.CONT STA ×2 (21:39)
[2018-03-14] MEDS ORDERED: Bisacodyl 10 MG Supp RECTAL PRN (21:41)
[2018-03-14] MEDS ORDERED: Acetaminophen 325 MG Tablet PO PRN (21:41)
--- NOTE | 2018-03-14 21:47 | ED ---
HPI General Chief complaint: Nausea/Vomiting/Diarrhea Stated complaint: Poss Dehydration x2days Time Seen by Provider: 03/14/18 20:19 History of Present Illness HPI narrative: 37 male here for evaluation of dehydration. 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 No urine output today. No fever chills or night sweats. Related Data Home Medications Medication Instructions Recorded Confirmed alprazolam [Xanax] 1 mg PO TID 03/08/18 03/14/18 dextroamphetamine-amphetamine See Label Instructions .ROUTE 03/08/18 03/15/18 [Adderall] .COMPLEX Allergies Allergy/AdvReac Type Severity Reaction Status Date / Time No Known Allergies Allergy NKA Uncoded 03/08/18 13:03 Review of Systems ROS: all other systems reviewed are negative [facility] Family History Family History Other No pertinent family history Social History Social History Substance History: No History of Abuse Second Hand Smoke Exposure: Yes Smoking Status: Never smoker How Often Do You Have a Drink Containing Alcohol: Never Recent Travel in [facility] within the Last 8 Weeks: No Recent Out of Country Travel within the Last 8 Weeks: No Immunization History Tetanus Immunization: <5 Years Tetanus Immunization Year if Known: 2018 Exam Narrative Exam Narrative: GENERAL: Alert oriented 3 no acute distress SKIN: Focused skin assessment warm/dry. HEAD: Atraumatic. Normocephalic. EYES: Pupils equal and round. No scleral icterus. No injection or drainage. ENT: No nasal bleeding or discharge. Mucous membranes pink and moist. NECK: Trachea midline. No JVD. CARDIOVASCULAR: Regular rate and rhythm. No murmur appreciated. RESPIRATORY: No accessory muscle use. Clear to auscultation. Breath sounds equal bilaterally. GASTROINTESTINAL: Abdomen soft, non-tender, nondistended. Hepatic and splenic margins not palpable. MUSCULOSKELETAL: No obvious deformities. No clubbing. No cyanosis. No edema. NEUROLOGICAL: Awake and alert. No obvious cranial nerve deficits. Motor grossly within normal limits. Normal speech. PSYCHIATRIC: Appropriate mood and affect; insight and judgment normal. Course Initial Documented Vital Signs Temperature 97.8 F 03/14/18 20:09 Pulse Rate 92 H 03/14/18 20:09 Respiratory Rate 18 03/14/18 20:09 Blood Pressure 128/87 03/14/18 20:09 Pulse Oximetry 98 03/14/18 20:09 Last Documented Vital Signs Temperature 97.3 F L 03/15/18 12:00 Pulse Rate 71 03/15/18 12:00 Respiratory Rate 17 03/15/18 12:00 Blood Pressure 125/71 03/15/18 12:00 Pulse Oximetry 95 03/15/18 12:00 Medical Decision Making MDM Narrative Medical decision making narrative: 37 male here for evaluation of dehydration, elevated creatinine of 3.6, patient received 2 L of fluids, still no urine output here in the ER, patient started on IV bicarb drip, patient will need more IV hydration, will admit for 23 hours observation. Medical Screen Exam Complete: Yes Emergency Medical Condition: Yes Lab Data Result diagrams: 03/15/18 05:50 03/15/18 05:50 Lab Results 03/14/18 03/14/18 03/15/18 Range/Units 20:43 20:43 05:50 CBC w Diff Auto diff final Auto diff final WBC 15.6 H 13.4 H (4.0-11.0) th/mm3 RBC 6.40 H 5.53 (4.50-5.90) mil/mm3 Hgb 18.5 H 16.3 D (13.0-17.0) gm/dL Hct 55.7 H 48.5 (39.0-51.0) % MCV 87.0 87.6 (80.0-100.0) fL MCH 29.0 29.5 (27.0-34.0) pg MCHC 33.3 33.7 (32.0-36.0) % RDW 12.8 12.8 (11.6-17.2) % Plt Count 397 333 (150-450) th/mm3 MPV 8.8 8.9 (7.0-11.0) fL Neut % (Auto) 78.9 H 63.8 (16.0-70.0) % Lymph % (Auto) 11.8 22.0 (9.0-44.0) % [place] % (Auto) 6.7 11.3 H (0.0-8.0) % Eos % (Auto) 0.2 2.3 (0.0-4.0) % Baso % (Auto) 2.4 H 0.6 (0.0-2.0) % Neut # (Auto) 12.4 H 8.5 H (1.8-7.7) th/mm3 Lymph # (Auto) 1.8 3.0 (1.0-4.8) th/mm3 [place] # (Auto) 1.0 H 1.5 H (0.0-0.9) th/mm3 Eos # (Auto) 0.0 0.3 (0.0-0.4) th/mm3 Baso # (Auto) 0.4 H 0.1 (0.0-0.2) th/mm3 WBC Differential . . Differential Comment . . Sodium 131 L (136-145) meq/L Potassium 4.0 (3.5-5.1) meq/L Chloride 93 L (98-107) meq/L Carbon Dioxide 25.0 (21.0-32.0) meq/L Anion Gap 13 (5-15) meq/L BUN 28 H (7-18) mg/dL Creatinine 3.60 H (0.60-1.30) mg/dL Estimated GFR 19 L (>89) mL/min Random Glucose 102 (74-106) mg/dL Calcium 10.0 (8.5-10.1) mg/dL Magnesium (1.5-2.5) mg/dL Total Bilirubin 0.9 (0.2-1.0) mg/dL AST 41 H (15-37) U/L ALT 52 (12-78) U/L Alkaline Phosphatase 90 (45-117) U/L Total Creatine Kinase 912 H (39-308) U/L CK-MB (CK-2) 7.0 H (0.5-3.6) ng/mL CK-MB (CK-2) % 0.8 (0.0-4.0) % Total Protein 9.9 H D (6.4-8.2) g/dL Albumin 5.4 H (3.4-5.0) g/dL Ur Collection Type Urine Color (Yellw/Straw) Urine Clarity (Clear) Urine pH (5.0-8.5) Ur Specific [place] (1.002-1.035) Urine Protein (Neg-Trace) mg/dL Urine Glucose (UA) (Negative) mg/dL Urine Ketones (Negative) mg/dL Urine Occult Blood (Negative) Urine Nitrate (Negative) Urine Bilirubin (Negative) Urine Urobilinogen (Less than 2) mg/dL Ur Leukocyte Esterase (Negative) Ur Squamous Epith Cells (0-5) /hpf Amorphous Sediment (None) /hpf Micro UA Comment Ur Microscopic Review Urine Culture Comments 03/15/18 03/15/18 03/15/18 Range/Units 05:50 05:50 10:55 CBC w Diff WBC (4.0-11.0) th/mm3 RBC (4.50-5.90) mil/mm3 Hgb (13.0-17.0) gm/dL Hct (39.0-51.0) % MCV (80.0-100.0) fL MCH (27.0-34.0) pg MCHC (32.0-36.0) % RDW (11.6-17.2) % Plt Count (150-450) th/mm3 MPV (7.0-11.0) fL Neut % (Auto) (16.0-70.0) % Lymph % (Auto) (9.0-44.0) % [place] % (Auto) (0.0-8.0) % Eos % (Auto) (0.0-4.0) % Baso % (Auto) (0.0-2.0) % Neut # (Auto) (1.8-7.7) th/mm3 Lymph # (Auto) (1.0-4.8) th/mm3 [place] # (Auto) (0.0-0.9) th/mm3 Eos # (Auto) (0.0-0.4) th/mm3 Baso # (Auto) (0.0-0.2) th/mm3 WBC Differential Differential Comment Sodium 133 L (136-145) meq/L Potassium 3.1 L D (3.5-5.1) meq/L Chloride 96 L (98-107) meq/L Carbon Dioxide 28.1 (21.0-32.0) meq/L Anion Gap 9 (5-15) meq/L BUN 26 H (7-18) mg/dL Creatinine 2.50 H (0.60-1.30) mg/dL Estimated GFR 29 L (>89) mL/min Random Glucose 92 (74-106) mg/dL Calcium 8.1 L D (8.5-10.1) mg/dL Magnesium 2.3 (1.5-2.5) mg/dL Total Bilirubin 0.8 (0.2-1.0) mg/dL AST 31 (15-37) U/L ALT 38 (12-78) U/L Alkaline Phosphatase 71 (45-117) U/L Total Creatine Kinase 717 H (39-308) U/L CK-MB (CK-2) 5.9 H (0.5-3.6) ng/mL CK-MB (CK-2) % 0.8 (0.0-4.0) % Total Protein 7.5 D (6.4-8.2) g/dL Albumin 4.0 D (3.4-5.0) g/dL Ur Collection Type Clean catch Urine Color Yellow (Yellw/Straw) Urine Clarity Clear (Clear) Urine pH 5.5 (5.0-8.5) Ur Specific [place] 1.015 (1.002-1.035) Urine Protein Negative (Neg-Trace) mg/dL Urine Glucose (UA) Negative (Negative) mg/dL Urine Ketones Negative (Negative) mg/dL Urine Occult Blood Negative (Negative) Urine Nitrate Negative (Negative) Urine Bilirubin Negative (Negative) Urine Urobilinogen 0.2 (Less than 2) mg/dL Ur Leukocyte Esterase Negative (Negative) Ur Squamous Epith Cells 0-5 (0-5) /hpf Amorphous Sediment Occasional H (None) /hpf Micro UA Comment Culture not ind Ur Microscopic Review Microscopic reviewed Urine Culture Comments Culture not ind Discharge Plan Discharge Disposition Patient Disposition: 30 Still Patient Physicians Team ED Provider: Ed Porras Primary Care Provider: Bunny Agee JR Attending Provider: Ezequiel Velasco ED Status: Left Department Discharge Information Discharge Date/Time: 03/14/18 23:29
[2018-03-15 06:32] LABS: Baso # (Auto) 0.1 th/mm3 (0.0-0.2); Baso % (Auto) 0.6 % (0.0-2.0); Eos # (Auto) 0.3 th/mm3 (0.0-0.4); Eos % (Auto) 2.3 % (0.0-4.0); Hematocrit 48.5 % (39.0-51.0); Hemoglobin 16.3 gm/dL (13.0-17.0); Mean Corpuscular HGB Conc 33.7 % (32.0-36.0); Mean Corpuscular Hemoglobin 29.5 pg (27.0-34.0); Mean Corpuscular Volume 87.6 fL (80.0-100.0); Mean Platelet Volume 8.9 fL (7.0-11.0); Mono # (Auto) 1.5 th/mm3 (0.0-0.9); Mono % (Auto) 11.3 % (0.0-8.0); Neut # (Auto) 8.5 th/mm3 (1.8-7.7); Neut % (Auto) 63.8 % (16.0-70.0); Platelet Count 333 th/mm3 (150-450); Red Blood Count 5.53 mil/mm3 (4.50-5.90); Red Cell Distribution Width 12.8 % (11.6-17.2); White Blood Count 13.4 th/mm3 (4.0-11.0)
[2018-03-15 06:33] LABS: Chloride 96 meq/L (98-107); Potassium 3.1 meq/L (3.5-5.1); Sodium 133 meq/L (136-145)
[2018-03-15 06:37] LABS: Calcium 8.1 mg/dL (8.5-10.1)
[2018-03-15 06:38] LABS: Anion Gap 9 meq/L (5-15); Blood Urea Nitrogen 26 mg/dL (7-18); Carbon Dioxide 28.1 meq/L (21.0-32.0); Glucose,Random 92 mg/dL (74-106)
[2018-03-15 06:41] LABS: Alanine Aminotransferase 38 U/L (12-78); Aspartate Aminotransferase 31 U/L (15-37); Glomerular Filtration Rate 29 mL/min (>89)
[2018-03-15 06:43] LABS: Total Protein 7.5 g/dL (6.4-8.2)
[2018-03-15 06:44] LABS: Alkaline Phosphatase 71 U/L (45-117); Creatine Kinase 717 U/L (39-308)
[2018-03-15 07:01] LABS: CKMB Percent 0.8 % (0.0-4.0); Creatine Kinase MB 5.9 ng/mL (0.5-3.6)
[2018-03-15] MEDS: Sod Chloride 0.9% Inj 1,000 ML IV.CONT SCH ×2 (08:31→16:15)
[2018-03-15] MEDS ORDERED: Sodium Bicarbonate 8.4% Inj 50 MEQ in Sod Chloride 0.9% Inj 950 ML IV.CONT SCH (09:00)
[2018-03-15 11:03] LABS: Bilirubin,Urine Negative (Negative); Clarity,Urine Clear (Clear); Color,Urine Yellow (Yellw/Straw); Glucose,Urine (UA) Negative (Negative); Leukocyte Esterase,Urine Negative (Negative); Nitrite,Urine Negative (Negative); PH,Urine 5.5 (5.0-8.5); Specific Gravity,Urine 1.015 (1.002-1.035); Urobilinogen,Urine 0.2 mg/dL (Less than 2)
[2018-03-15 11:15] LABS: Amorphous Sediment,Urine Occasional /hpf; Squamous Epithelial Cell,Urine 0-5 /hpf (0-5)
[2018-03-15] MEDS ORDERED: Amphetamine/Dextroamphetamine 20 MG Tablet PO SCH (14:00)
[2018-03-15 17:27] LABS: Amphetamine Screen,Urine Pos (Neg)
[2018-03-15 17:34] LABS: Barbiturate Screen,Urine Neg (Neg)
[2018-03-15 17:37] LABS: Cannabinoid Screen,Urine Neg (Neg)
[2018-03-15 17:39] LABS: Cocaine Screen,Urine Neg (Neg)
[2018-03-15 17:41] LABS: Opiate Screen,Urine Neg (Neg)
[2018-03-16] MEDS: Sod Chloride 0.9% Inj 1,000 ML IV.CONT SCH ×2 (00:22→08:34)
[2018-03-16] MEDS ORDERED: Amphetamine/Dextroamphetamine 20 MG Tablet PO SCH (06:30)
[2018-03-16 06:51] LABS: Baso % (Auto) 0.4 % (0.0-2.0); Eos # (Auto) 0.2 th/mm3 (0.0-0.4); Eos % (Auto) 2.2 % (0.0-4.0); Hematocrit 47.1 % (39.0-51.0); Hemoglobin 15.6 gm/dL (13.0-17.0); Lymph # (Auto) 1.9 th/mm3 (1.0-4.8); Lymph % (Auto) 18.3 % (9.0-44.0); Mean Corpuscular Hemoglobin 29.4 pg (27.0-34.0); Mean Corpuscular Volume 88.9 fL (80.0-100.0); Mean Platelet Volume 9.1 fL (7.0-11.0); Mono # (Auto) 1.2 th/mm3 (0.0-0.9); Mono % (Auto) 11.2 % (0.0-8.0); Neut % (Auto) 67.9 % (16.0-70.0); Platelet Count 303 th/mm3 (150-450); Red Cell Distribution Width 12.9 % (11.6-17.2); White Blood Count 10.3 th/mm3 (4.0-11.0)
[2018-03-16 07:40] LABS: Carbon Dioxide 27.2 meq/L (21.0-32.0); Potassium 3.9 meq/L (3.5-5.1)
[2018-03-16 08:08] LABS: CKMB Percent 0.8 % (0.0-4.0); Creatine Kinase MB 2.4 ng/mL (0.5-3.6)
== END 2018-03-16 09:24 | disposition home or self-care (01) ==
LOC: PHED 19:57 → PHEDA 19:57 → PH3 23:16
PROVIDERS: ADMIT Internal Medicine; ATTEND Internal Medicine